=== PATIENT | male | born 1970 | race Caucasian/White ===

== ENCOUNTER 2017-04-24 10:07 | Emergency (ER) | payer MEDICAID ==
[2017-04-24 11:51] LABS: BASOPHIL % 0.2 % (0-2); PLATELET COUNT 175 x10^3mcL (130-400); RED CELL DISTRIBUTION WIDTH 13.2 % (11.5-14.5)
[2017-04-24 12:00] LABS: CALCIUM 7.3 mg/dL (8.5-10.1); CARBON DIOXIDE 22.7 mmol/L (21-32); CHLORIDE SERUM 98 mmol/L (98-107); CREATININE SERUM 1.2 mg/dL (0.7-1.3); GFR1 > 60 mL/min; GLUCOSE SERUM 108 mg/dL (74-106); POTASSIUM SERUM 3.5 mmol/L (3.5-5.1); SODIUM SERUM 133 mmol/L (136-145)
[2017-04-24 12:04] LABS: ALKALINE PHOSPHATASE 75 U/L (46-116); ALT/SGPT 103 U/L (16-63); AMYLASE 38 U/L (25-115); AST/SGOT 77 U/L (15-37); BILIRUBIN TOTAL 0.4 mg/dL (0.20-1.00); LIPASE 167 IU/L (73-393); TOTAL PROTEIN, SERUM 7.4 g/dL (6.4-8.2)
[2017-04-24 12:05] LABS: ALBUMIN 2.8 g/dL (3.4-5.0)
[2017-04-24 15:37] VITALS: BP 123/78
== END 2017-04-24 15:37 | disposition home or self-care (01) ==
LOC: ED 10:07
PROVIDERS: Emergency Medicine
DX: R50.9 Fever, unspecified (principal); R10.9 Unspecified abdominal pain; E86.0 Dehydration
CPT/HCPCS: 83880; 87046; 87046-59; 87804; J2270; J2405; J7030; Q0092

== ENCOUNTER 2019-02-09 18:06 | Emergency (ER) | payer SELFPAY ==
[~2019-02-09] VITALS: Ht 172.7 cm; Wt 88.5 kg
[2019-02-09 18:15] VITALS: Ht 172.7 cm; Wt 88.5 kg
[2019-02-09 21:24] VITALS: BP 140/87
== END 2019-02-09 21:24 | disposition home or self-care (01) ==
LOC: ED 18:06
DX: S46.911A Strain of unspecified muscle, fascia and tendon at shoulder and upper arm level, right arm, initial encounter (principal); V49.9XXA Car occupant (driver) (passenger) injured in unspecified traffic accident, initial encounter; Y93.I9 Activity, other involving external motion; Y92.413 State road as the place of occurrence of the external cause; Y99.8 Other external cause status
CPT/HCPCS: J1885